=== PATIENT | female | born 1980 | race Caucasian/White ===

== ENCOUNTER 2018-09-10 08:08 | Emergency (ER) | payer MEDICAID ==
[~2018-09-10] VITALS: Ht 162.6 cm; Wt 99.1 kg
[2018-09-10] MEDS ORDERED: dexamethasone 4mg tablet PO ONE (09:20)
[2018-09-10] MEDS ORDERED: CLIN300C53 PO (09:21)
[2018-09-10] MEDS ORDERED: PRED20TA PO (09:21)
[2018-09-10 09:44] VITALS: BP 130/93
== END 2018-09-10 09:46 | disposition home or self-care (01) ==
LOC: ER 08:09
DX: J03.90 Acute tonsillitis, unspecified (principal); Z56.0 Unemployment, unspecified; Z59.0 Homelessness; Z88.1 Allergy status to other antibiotic agents; Z79.899 Other long term (current) drug therapy
CPT/HCPCS: 99283; J8540

== ENCOUNTER 2018-12-27 02:30 | Emergency (ER) | payer MEDICAID ==
[~2018-12-27] VITALS: Ht 162.6 cm; Wt 102.7 kg
[2018-12-27 03:08] VITALS: BP 141/81
[2018-12-27] MEDS ORDERED: ondansetron/PF 4mg/2ml inj IV ONE (03:20)
[2018-12-27 03:35] LABS: BASOPHILS % (AUTO) 0.3 % (0-1); EOSINOPHILS # (AUTO) 0.2 X10'3 (0-0.9); EOSINOPHILS % (AUTO) 2.8 % (0-6); HEMATOCRIT 35.9 % (35.0-45.0); HEMOGLOBIN 11.7 g/dl (12.0-16.0); LYMPHOCYTES # (AUTO) 2.7 X10'3 (1.1-4.8); LYMPHOCYTES % (AUTO) 38.6 % (21-51); MEAN CORPUSCULAR HEMOGLOBIN 27.5 PG (27.0-31.0); MEAN CORPUSCULAR HGB CONC 32.6 g/dL (33.0-36.5); MEAN CORPUSCULAR VOLUME 84.4 FL (78-98); MEAN PLATELET VOLUME 7.7 FL (7.4-10.4); MONOCYTES # (AUTO) 0.6 X10'3 (0-0.9); MONOCYTES % (AUTO) 8.1 % (2-12); NEUTROPHILS # (AUTO) 3.5 X10'3 (1.8-7.7); NEUTROPHILS % (AUTO) 50.2 % (42-75); PLATELET COUNT 268 X10'3 (140-440); RED BLOOD COUNT 4.26 X10'6 (4.20-5.60); RED CELL DISTRIBUTION WIDTH 15.2 % (11.5-14.5); WHITE BLOOD COUNT 7.1 X10'3 (4.5-11.0)
[2018-12-27 03:39] LABS: ALANINE AMINOTRANSFERASE 25 U/L (12-78); ALBUMIN 3.1 G/DL (3.4-5.0); ALBUMIN/GLOBULIN RATIO 0.9 (1.1-1.5); ALKALINE PHOSPHATASE 101 IU/L (46-116); ANION GAP 8 (8-16); ASPARTATE AMINO TRANSFERASE 21 U/L (10-37); BILIRUBIN,TOTAL 0.5 MG/DL (0.1-1.0); BLOOD UREA NITROGEN 12 MG/DL (7-18); BUN/CREATININE RATIO 15.2 (6.6-38.0); CHLORIDE 105 MMOL/L (99-107); CREATININE 0.79 MG/DL (0.40-0.90); GLUCOSE 113 MG/DL (70-104); LIPASE 79 U/L (73-393); POTASSIUM 3.5 MMOL/L (3.5-5.1); SODIUM 139 MMOL/L (135-145); TOTAL CARBON DIOXIDE 25.6 MMOL/L (24-32); TOTAL PROTEIN 6.7 G/DL (6.4-8.2); eGFR 81 ML/MIN
== END 2018-12-27 04:19 | disposition home or self-care (01) ==
LOC: ER 02:30
DX: K80.50 Calculus of bile duct without cholangitis or cholecystitis without obstruction (principal); Z56.0 Unemployment, unspecified; Z59.0 Homelessness; Z88.1 Allergy status to other antibiotic agents; Z88.8 Allergy status to other drugs, medicaments and biological substances
CPT/HCPCS: 36415; 80053; 83690; 84484; 85025; 93005; 96374; 99284; J2405

== ENCOUNTER 2019-04-11 19:47 | Emergency (ER) | payer MEDICAID ==
[~2019-04-11] VITALS: Ht 160 cm; Wt 100.0 kg
[2019-04-11] MEDS ORDERED: ALBU8.5H8 IH (20:38)
[2019-04-11] MEDS ORDERED: BENZ-16 PO (20:38)
[2019-04-11 20:54] VITALS: BP 129/101
== END 2019-04-11 20:55 | disposition home or self-care (01) ==
LOC: ER 19:48
DX: J20.9 Acute bronchitis, unspecified (principal); F10.99 Alcohol use, unspecified with unspecified alcohol-induced disorder; Z59.0 Homelessness; Z56.0 Unemployment, unspecified; Z88.1 Allergy status to other antibiotic agents; Z88.8 Allergy status to other drugs, medicaments and biological substances; Z79.899 Other long term (current) drug therapy; Y90.9 Presence of alcohol in blood, level not specified
CPT/HCPCS: 71045; 99283

== ENCOUNTER 2021-02-28 04:14 | Emergency (ER) | payer MEDICAID ==
[~2021-02-28] VITALS: Ht 160 cm; Wt 57.0 kg
[~2021-02-28 04:14] MED LIST: ALBU8.5H17 IH
[2021-02-28 04:18] VITALS: BP 148/83
[2021-02-28] MEDS ORDERED: Cipro HC otic suspension 10ML bottle LEFT EAR SCH (04:30)
[2021-02-28] MEDS ORDERED: ibuprofen tablet 400 MG TABLET PO ONE (04:30)
== END 2021-02-28 04:59 | disposition home or self-care (01) ==
LOC: ER 04:14
DX: U07.1 COVID-19 (principal); H60.92 Unspecified otitis externa, left ear; H92.02 Otalgia, left ear; R05 Cough; R09.89 Other specified symptoms and signs involving the circulatory and respiratory systems; Z72.89 Other problems related to lifestyle; Z56.0 Unemployment, unspecified; Z59.0 Homelessness; Z88.1 Allergy status to other antibiotic agents; Z88.8 Allergy status to other drugs, medicaments and biological substances; Z79.899 Other long term (current) drug therapy
CPT/HCPCS: 36415; 99283; U0003; U0005

== ENCOUNTER 2021-05-29 18:27 | Emergency (ER) | payer MEDICAID ==
[~2021-05-29] VITALS: Ht 160 cm; Wt 68.2 kg
[2021-05-29 19:14] VITALS: BP 140/98
[2021-05-29] MEDS ORDERED: LORazepam 1 MG tablet PO ONE (20:00)
[2021-05-29] MEDS ORDERED: ketorolac trometh. 30mg/ml inj. IM ONE (20:00)
== END 2021-05-29 21:01 | disposition home or self-care (01) ==
LOC: ER 18:27
DX: F41.9 Anxiety disorder, unspecified (principal); R45.1 Restlessness and agitation; M79.18 Myalgia, other site; Z72.89 Other problems related to lifestyle; Z56.0 Unemployment, unspecified; Z59.00 Homelessness unspecified; Z88.1 Allergy status to other antibiotic agents; Z88.8 Allergy status to other drugs, medicaments and biological substances; Z79.899 Other long term (current) drug therapy; V87.7XXA Person injured in collision between other specified motor vehicles (traffic), initial encounter; Y93.89 Activity, other specified; Y92.89 Other specified places as the place of occurrence of the external cause; Y99.8 Other external cause status
CPT/HCPCS: 96372; 99283; J1885

== ENCOUNTER 2023-01-08 10:16 | Emergency (ER) | payer MEDICAID ==
[~2023-01-08] VITALS: Ht 160 cm; Wt 64.4 kg
[2023-01-08 10:21] VITALS: BP 99/64; PULSE 120; RESP 20; O2SAT 100
[2023-01-08] MEDS ORDERED: acetaminophen 325mg tablet PO ONE (10:30)
[2023-01-08] MEDS ORDERED: ibuprofen tablet 400 MG TABLET PO ONE (10:30)
[2023-01-08 12:04] VITALS: TEMP 99.1
== END 2023-01-08 12:08 | disposition home or self-care (01) ==
LOC: ER 10:16
DX: R50.9 Fever, unspecified (principal); Z20.822 Contact with and (suspected) exposure to COVID-19; M79.10 Myalgia, unspecified site; R68.83 Chills (without fever); Z59.00 Homelessness unspecified; Z56.0 Unemployment, unspecified; Z88.1 Allergy status to other antibiotic agents; Z88.8 Allergy status to other drugs, medicaments and biological substances; Z79.899 Other long term (current) drug therapy
CPT/HCPCS: 87811; 99283

== ENCOUNTER 2023-01-09 16:53 | Emergency (ER) | payer MEDICAID ==
[~2023-01-09] VITALS: Ht 160 cm; Wt 66.6 kg
[2023-01-09 17:14] VITALS: BP 125/77; PULSE 67; RESP 17; TEMP 99.6
== END 2023-01-09 21:54 | disposition left against medical advice (07) ==
LOC: ER 16:54
DX: R50.9 Fever, unspecified (principal); Z53.21 Procedure and treatment not carried out due to patient leaving prior to being seen by health care provider
CPT/HCPCS: 99281

== ENCOUNTER 2023-02-05 01:55 | Emergency (ER) | payer MEDICAID ==
[~2023-02-05] VITALS: Ht 160 cm; Wt 63.4 kg
[2023-02-05 02:08] VITALS: BP 141/92; PULSE 98; RESP 16; TEMP 97.8; O2SAT 100
== END 2023-02-05 03:10 | disposition home or self-care (01) ==
LOC: ER 01:56
DX: H92.03 Otalgia, bilateral (principal); Z88.1 Allergy status to other antibiotic agents; Z88.8 Allergy status to other drugs, medicaments and biological substances; Z79.899 Other long term (current) drug therapy
CPT/HCPCS: 99281

== ENCOUNTER 2023-08-31 02:23 | Emergency (ER) | payer MEDICAID, OTHER ==
[~2023-08-31] VITALS: Ht 160 cm; Wt 63.0 kg
[2023-08-31 02:26] VITALS: BP 168/91; PULSE 102; TEMP 98.2; O2SAT 99
[2023-08-31] MEDS: HYDROcodone/acetaminophen 5mg/325mg tablet PO ONE (04:47)
[2023-08-31] MEDS: clindamycin 600mg/D5W 50ml 50 ML IV ONE (04:47)
[2023-08-31 05:09] VITALS: RESP 16
[2023-08-31] MEDS ORDERED: HYDR-3965 PO (05:13)
[2023-08-31] MEDS ORDERED: CLIN-97 PO (05:13)
== END 2023-08-31 05:23 | disposition home or self-care (01) ==
LOC: ER 02:24
DX: K04.7 Periapical abscess without sinus (principal); Z88.1 Allergy status to other antibiotic agents; Z88.8 Allergy status to other drugs, medicaments and biological substances; Z79.899 Other long term (current) drug therapy
CPT/HCPCS: 96365; 99284; J3490